=== PATIENT | female | born 1940 | race African-American/Black ===

== ENCOUNTER 2018-11-16 06:12 | Emergency (ER) | payer MEDICARE, OTHER ==
[2018-11-16] MEDS ORDERED: Promethazine HCl 25 MG/ML VIAL ONE (06:32)
[2018-11-16 06:44] LABS: #Basophils 0.1 thou/uL (0.0-0.2); #Lymphocytes 0.9 thou/uL (1.20-3.40); #Monocytes 0.8 thou/uL (0.11-0.59); #Neutrophils 11.7 thou/uL (1.40-6.50); %Basophils 0.9 % (0.0-1.0); %Eosinophils 0.3 % (0.0-10.0); %Lymphocytes 6.4 % (21.0-51.0); %Monocytes 5.8 % (0.0-10.0); %Neutrophils 86.6 % (42.0-75.0); Hemoglobin 14.7 g/dL (12.0-16.0); Mean Corpuscular HGB CONC 31.6 g/dL (32.0-36.0); Mean Corpuscular Hemoglobin 27.9 pg (27.0-31.0); Mean Corpuscular Volume 88.2 fL (78.0-98.0); Mean Platelet Volume 7.5 fL (7.4-10.4); Platelet Count 259 thou/uL (130-400); RBC Distribution Width 13.2 % (11.5-14.5); Red Blood Cell (RBC) Count 5.28 mill/uL (4.20-5.40); White Blood Cell (WBC) Count 13.5 thou/uL (4.8-10.8)
[2018-11-16 07:06] LABS: ALT (SGPT) 11 U/L (8-55); AST (SGOT) 17 U/L (5-34); Albumin 4.3 g/dL (3.4-4.8); Alkaline Phosphatase 85 U/L (40-150); Anion Gap 12 mmol/L (10-20); BUN (Urea Nitrogen) 13 mg/dL (9.8-20.1); Bilirubin, Total 0.2 mg/dL (0.2-1.2); Calc. Creatinine Clearance 0 mL/min (70-130); Calcium 9.9 mg/dL (7.8-10.44); Carbon Dioxide 25 mmol/L (23-31); Chloride 106 mmol/L (98-107); Estimated GFR-MDRD 61; Globulin 3.6 g/dL (2.4-3.5); Glucose 132 mg/dL (83-110); Lipase 34 U/L (8-78); Potassium 3.5 mmol/L (3.5-5.1); Protein, Total 7.9 g/dL (6.0-8.3); Sodium 139 mmol/L (136-145)
[2018-11-16 09:51] LABS: Bilirubin Negative (Negative); Blood, Urine Negative (Negative); Clarity CLEAR (Clear); Glucose, Urine (Dipstick) Negative (Negative); Leukocyte Negative (Negative); Nitrite Negative (Negative); Protein, Urine (Dipstick) Trace mg/dL (Neg-Trace); Specific Gravity, Urine 1.023 (1.002-1.036); Urobilinogen 0.2 mg/dL (0.2-1.0); pH, Urine 5.5 (5.0-9.0)
== END 2018-11-16 11:03 | disposition home or self-care (01) ==
LOC: ERS 06:12
DX: K52.9 Noninfective gastroenteritis and colitis, unspecified (principal); M25.512 Pain in left shoulder; Z87.891 Personal history of nicotine dependence
CPT/HCPCS: 36415; 80053; 81003; 83690; 85025; 93005; 96365; J2550

== ENCOUNTER 2023-10-08 09:34 | Outpatient (CLI) | payer MEDICARE | END 2023-10-08 09:35 | disposition home or self-care (01) | LOC: BICMAMMO 09:34 | PROVIDERS: ATTEND Specialist | DX: N63.10 Unspecified lump in the right breast, unspecified quadrant (principal); R22.31 Localized swelling, mass and lump, right upper limb; R92.1 Mammographic calcification found on diagnostic imaging of breast | CPT/HCPCS: 77066; G0279 ==

== ENCOUNTER 2024-06-16 08:22 | Outpatient (CLI) | payer MEDICARE ==
[2024-06-16] MEDS ORDERED: Iopamidol 370 76% 100 ML VIAL ONE (13:02)
== END 2024-06-16 08:23 | disposition home or self-care (01) ==
LOC: CT 08:22
PROVIDERS: ATTEND Internal Medicine Hematology & Oncology
DX: C50.111 Malignant neoplasm of central portion of right female breast (principal); R91.1 Solitary pulmonary nodule
CPT/HCPCS: 36415; 71260; 74177; 78306; 82565 ×2; A9503; J1642; 77014; 77280; 77290; 77295; 77300; 77333; 77334; 77412

== ENCOUNTER 2025-05-09 07:38 | Outpatient (CLI) | payer MEDICARE ==
[2025-05-09] MEDS ORDERED: Iopamidol 370 76% 100 ML VIAL ONE (08:43)
== END 2025-05-09 07:39 | disposition home or self-care (01) ==
LOC: CT 07:38
PROVIDERS: ATTEND Internal Medicine Hematology & Oncology
DX: C50.111 Malignant neoplasm of central portion of right female breast (principal); M81.8 Other osteoporosis without current pathological fracture; Z79.811 Long term (current) use of aromatase inhibitors; J98.4 Other disorders of lung; J90 Pleural effusion, not elsewhere classified; I70.0 Atherosclerosis of aorta; K80.20 Calculus of gallbladder without cholecystitis without obstruction; I70.8 Atherosclerosis of other arteries; K57.30 Diverticulosis of large intestine without perforation or abscess without bleeding; R91.8 Other nonspecific abnormal finding of lung field; Z90.11 Acquired absence of right breast and nipple; Z90.710 Acquired absence of both cervix and uterus
CPT/HCPCS: 36000; 71260; 74177; 78306; A9503; Q9967

== ENCOUNTER 2025-06-02 13:41 | Outpatient (CLI) | payer MEDICARE | END 2025-06-02 13:42 | disposition home or self-care (01) | LOC: MRI 13:41 → SCSMRI 13:42 | PROVIDERS: ATTEND Radiology Radiation Oncology | DX: C50.919 Malignant neoplasm of unspecified site of unspecified female breast (principal); M47.816 Spondylosis without myelopathy or radiculopathy, lumbar region; M47.817 Spondylosis without myelopathy or radiculopathy, lumbosacral region; M48.061 Spinal stenosis, lumbar region without neurogenic claudication; M48.07 Spinal stenosis, lumbosacral region; M51.369 Other intervertebral disc degeneration, lumbar region without mention of lumbar back pain or lower extremity pain; M51.379 Other intervertebral disc degeneration, lumbosacral region without mention of lumbar back pain or lower extremity pain; M81.0 Age-related osteoporosis without current pathological fracture | CPT/HCPCS: 72158 ==

== ENCOUNTER 2025-06-06 13:47 | Outpatient (CLI) | payer MEDICARE | END 2025-06-06 13:48 | disposition home or self-care (01) | LOC: SCSMRI 13:47 | PROVIDERS: ATTEND Family Medicine | DX: R22.1 Localized swelling, mass and lump, neck (principal); K11.1 Hypertrophy of salivary gland | CPT/HCPCS: 70543 ==